=== PATIENT | female | born 1950 | race Caucasian/White ===

== ENCOUNTER 2017-03-16 13:59 | Inpatient (IN) | payer MEDICARE, BC ==
[~2017-03-16] VITALS: Ht 149.9 cm; Wt 45.4 kg
[2017-03-16 14:10] VITALS: BP 141/97
--- NOTE | 2017-03-16 14:10 | NUR ---
ADMISSION NOTES/ PATIENT DIRECT ADMIT AT THIS TIME BROUGHT BY AMBULANCE FROM [facility], 66 Y/OLD ON DX OF GD ON HOLD OF 5150. ACCORDING ON HOLD PT GRAVELY DISABLE, CONFUSED, BROTH [facility] ER HERSELF. 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 DISCHARGE FROM ER, AND RETURNED BACK TO ER REQUESTING ANOTHER TAXI. PT CONFUSED, AND DISORGANIZED. ON FACE TO FACE ASSESSMENT PATIENT A/O X3, WITH CONFUSION, NO RESPIRATORY DISTRESS, SKIN ASSESSMENT DONE, PICTURE TAKEN. PT UNSTEADY GAIT, USING WALKER, HIGH FALL RISK, BED ALARM ON. MRSA OF NARES SWAB TAKEN, PATIENT REFUSED SIGN PAPERWORK. PATIENTS RIGHT HAND BOOK GIVEN, AND EXPLAINED TO. DR DE LEÓN, AND DR MCDONOUGH AWARE OF NEW PATIENT , AND NEW MEDICATION. PATIENT'S FAMILY NOTIFIED.
[2017-03-16] MEDS ORDERED: MAG HYDROX/AL HYDROX/SIMETH 30 ML UDC PO PRN (14:30)
[2017-03-16] MEDS ORDERED: ACETAMINOPHEN 325 MG TABLET PO PRN (14:30)
[2017-03-16] MEDS ORDERED: MAGNESIUM HYDROXIDE 30 ML UDC PO PRN (14:30)
[2017-03-16 16:00] VITALS: BP 123/70
[2017-03-16] MEDS ORDERED: ONDA4TAB8 PO (16:47)
[2017-03-16] MEDS ORDERED: LISI40TA4 PO (16:47)
[2017-03-16] MEDS ORDERED: LOVA40TA2 PO (16:47)
[2017-03-16] MEDS ORDERED: ALEN70TA45 PO (16:47)
[2017-03-16] MEDS ORDERED: HYDR25TA4 PO (16:47)
[2017-03-16] MEDS ORDERED: POTA-58 PO (16:47)
[2017-03-16] MEDS ORDERED: LEVE500T20 PO (16:47)
[2017-03-16] MEDS ORDERED: OLAN5TAB6 SL (16:52)
[2017-03-16] MEDS ORDERED: ACET-73 PO (16:52)
[2017-03-16] MEDS ORDERED: IBUP-51 PO (16:52)
[2017-03-16] MEDS ORDERED: CHOL200026 PO (17:05)
[2017-03-16] MEDS ORDERED: FERR-58 PO (17:05)
[2017-03-16] MEDS ORDERED: DOCU-170 PO (17:05)
[2017-03-16] MEDS ORDERED: LOVA20TA2 PO (17:05)
[2017-03-16] MEDS ORDERED: TRAM50TA2 PO (17:05)
[2017-03-16] MEDS ORDERED: HYDR-552 PO (17:05)
[2017-03-16] MEDS ORDERED: NICO2GUM9 BC (18:26)
[2017-03-16] MEDS ORDERED: LORA1TAB PO (18:26)
[2017-03-16] MEDS ORDERED: NICO1PAT44 TD (18:32)
[2017-03-16] MEDS ORDERED: LORA2TAB PO (18:32)
[2017-03-16] MEDS ORDERED: OLAN10VI IM (18:35)
[2017-03-16 20:25] VITALS: BP 136/91
[2017-03-16] MEDS: LORAZEPAM 0.5 MG TABLET PO PRN (20:47)
[2017-03-16] MEDS: OLANZAPINE 5 MG/TAB.RAPDIS PO SCH (21:53)
[2017-03-16] MEDS: ZOLPIDEM TARTRATE 5 MG TABLET PO PRN (21:58)
[2017-03-17 08:00] VITALS: BP 115/68
[2017-03-17 08:01] LABS: ALBUMIN 3.2 g/dL (3.4-5.0); BILIRUBIN,TOTAL 0.3 mg/dL (0.2-1.0); CALCIUM, SERUM 9.5 mg/dL (8.5-10.1); CREATININE 0.7 mg/dL (0.6-1.3); TOTAL PROTEIN, SERUM 6.6 g/dL (6.4-8.2)
[2017-03-17] MEDS: OLANZAPINE 5 MG/TAB.RAPDIS PO SCH ×2 (08:29→20:37)
[2017-03-17] MEDS ORDERED: NICOTINE PATCH (14MG) 14 MG PATCH.TD24 TD PRN (15:30)
[2017-03-17] MEDS ORDERED: DOCUSATE SODIUM 100 MG CAPSULE PO PRN (15:30)
[2017-03-17] MEDS ORDERED: IBUPROFEN 200 MG TABLET PO PRN (15:30)
[2017-03-17] MEDS: HYDROCHLOROTHIAZIDE 25 MG TABLET PO SCH (15:30)
[2017-03-17] MEDS ORDERED: NICOTINE POLACRILEX 2 MG BC PRN (15:30)
[2017-03-17 16:00] VITALS: BP_SYST 101; BP_SYST 140; BP_DIAS 100; BP_DIAS 51
[2017-03-17] MEDS: CHOLECALCIFEROL 1,000 UNIT TABLET (VIT D3) PO SCH (16:19)
[2017-03-17] MEDS: HYDROCODONE/APAP 5/325MG 1 EACH TABLET PO PRN ×2 (16:19→22:59)
[2017-03-17] MEDS ORDERED: LEVETIRACETAM (250 MG) 250 MG TABLET PO SCH (17:00)
[2017-03-17] MEDS: FERROUS SULFATE (325 MG) 325 MG/TAB TABLET PO SCH (17:01)
[2017-03-17] MEDS ORDERED: LOVASTATIN (NON FORMULARY) 20 MG TABLET PO SCH (18:00)
[2017-03-17 20:00] VITALS: BP 103/69
[2017-03-17] MEDS: LEVETIRACETAM (250 MG) 250 MG TABLET PO SCH (20:37)
[2017-03-17] MEDS: ATORVASTATIN 10 MG TABLET PO SCH (21:50)
[2017-03-17] MEDS: LORAZEPAM 0.5 MG TABLET PO PRN (21:51)
[2017-03-17] MEDS: LISINOPRIL (20MG) 20 MG TABLET PO SCH (21:51)
--- NOTE | 2017-03-17 21:51 | NUR ---
GPS RN NOTES PATIENT APPEARS TO BE RESTLESS AND ANXIOUS. PRN ATIVAN 1 MG GIVEN PO AT 2151 FOR ANXIETY.
--- NOTE | 2017-03-17 22:59 | NUR ---
GPS RN NOTES NORCO 5/325 MG GIVEN PO AT 2259 PER PATIENT REQUEST FOR GENERALIZED PAIN AT 10/10 PAIN SCALE.
[2017-03-17] MEDS: ZOLPIDEM TARTRATE 5 MG TABLET PO PRN (23:56)
--- NOTE | 2017-03-17 23:56 | NUR ---
GPS RN NOTES AMBIEN 5 MG GIVEN PO AT 2356 FOR INABILITY TO SLEEP.
[2017-03-18 08:00] VITALS: BP 132/89
[2017-03-18] MEDS: CHOLECALCIFEROL 1,000 UNIT TABLET (VIT D3) PO SCH (08:20)
[2017-03-18] MEDS: HYDROCHLOROTHIAZIDE 25 MG TABLET PO SCH (08:20)
[2017-03-18] MEDS: FERROUS SULFATE (325 MG) 325 MG/TAB TABLET PO SCH ×3 (08:20→17:27)
[2017-03-18] MEDS: OLANZAPINE 5 MG/TAB.RAPDIS PO SCH ×2 (08:21→21:03)
[2017-03-18] MEDS: LEVETIRACETAM (250 MG) 250 MG TABLET PO SCH ×2 (08:21→21:03)
--- NOTE | 2017-03-18 12:56 | NUR ---
Initial discharge plan: Pt. lives in an [address] [facility] [address] [facility] [address] with her fiance Juan Carlos ([phone]) and will return upon discharge. MONTSE spoke with Juan Carlos who says pt. needs to be stabilized as she has been acting very strange in the past two weeks and needs to be evaluated properly. MONTSE informed of all necessary information and will contact Juan Carlos when pt. is ready to be discharged. Suzanne [phone] from [facility] most likely will help with transportation back home if Juan Carlos is unable to warehouse order picker the patient.
[2017-03-18 16:00] VITALS: BP 127/85
[2017-03-18] MEDS: LORAZEPAM 0.5 MG TABLET PO PRN (19:45)
[2017-03-18 20:00] VITALS: BP 126/95
[2017-03-18] MEDS: ATORVASTATIN 10 MG TABLET PO SCH (21:02)
[2017-03-18] MEDS: LISINOPRIL (20MG) 20 MG TABLET PO SCH (21:02)
[2017-03-18] MEDS: ZOLPIDEM TARTRATE 5 MG TABLET PO PRN (21:02)
[2017-03-19 08:00] VITALS: BP 117/69
[2017-03-19] MEDS: LEVETIRACETAM (250 MG) 250 MG TABLET PO SCH ×2 (08:15→22:10)
[2017-03-19] MEDS: FERROUS SULFATE (325 MG) 325 MG/TAB TABLET PO SCH ×3 (08:15→17:10)
[2017-03-19] MEDS: CHOLECALCIFEROL 1,000 UNIT TABLET (VIT D3) PO SCH (08:15)
[2017-03-19] MEDS: HYDROCHLOROTHIAZIDE 25 MG TABLET PO SCH (08:16)
[2017-03-19] MEDS: OLANZAPINE 5 MG/TAB.RAPDIS PO SCH ×2 (08:16→22:11)
[2017-03-19 16:00] VITALS: BP 130/76
[2017-03-19 20:00] VITALS: BP 127/86
--- NOTE | 2017-03-19 20:00 | NUR ---
GPS/SUPERVISOR BENZENE REFINING; RECEIVED PT WALKING WITH WALKER WITH HER BOYFRIEND TOWARDS THE DAY ROOM . NO MENTIONED OF PAIN. BREATHING NON LABORED. NO AGGRESSION NOTED AT THIS TIME. WILL CONTINUE TO MONITOR.
[2017-03-19] MEDS: ATORVASTATIN 10 MG TABLET PO SCH (22:12)
[2017-03-19] MEDS: LISINOPRIL (20MG) 20 MG TABLET PO SCH (22:13)
[2017-03-19] MEDS: HYDROCODONE/APAP 5/325MG 1 EACH TABLET PO PRN (22:55)
[2017-03-20] MEDS: ZOLPIDEM TARTRATE 5 MG TABLET PO PRN ×2 (00:58→23:03)
--- NOTE | 2017-03-20 06:46 | NUR ---
GPS/QUAHOGGER; SLEPT FOR 5 HOURS LAST NIGHT . PT. IS CONVERSANT. WILL ENDORSE TO THE DAY SHIFT NURSE.
[2017-03-20] MEDS ORDERED: ALENDRONATE 70 MG TABLET PO SCH (07:30)
[2017-03-20 08:00] VITALS: BP 122/78
[2017-03-20] MEDS: LEVETIRACETAM (250 MG) 250 MG TABLET PO SCH ×2 (08:38→21:38)
[2017-03-20] MEDS: CHOLECALCIFEROL 1,000 UNIT TABLET (VIT D3) PO SCH (08:38)
[2017-03-20] MEDS: OLANZAPINE 5 MG/TAB.RAPDIS PO SCH ×2 (08:38→21:39)
[2017-03-20] MEDS: HYDROCHLOROTHIAZIDE 25 MG TABLET PO SCH (08:39)
[2017-03-20] MEDS: FERROUS SULFATE (325 MG) 325 MG/TAB TABLET PO SCH ×3 (08:42→18:34)
[2017-03-20] MEDS: HYDROCODONE/APAP 5/325MG 1 EACH TABLET PO PRN ×2 (13:13→20:50)
--- NOTE | 2017-03-20 13:13 | NUR ---
ADMINISTERED NARCO 5/325 MG PO PRN FOR CHRONIC GENERALIZED PAIN 06/23, V/S TAKE, BP-120/74, P-78, CONTINUED MONITORING, ENCOURAGED TO INCREASE FLUID INTAKE.
[2017-03-20 16:00] VITALS: BP 122/91
[2017-03-20 20:09] VITALS: BP 119/94
[2017-03-20] MEDS: ATORVASTATIN 10 MG TABLET PO SCH (21:38)
[2017-03-20] MEDS: LISINOPRIL (20MG) 20 MG TABLET PO SCH (21:39)
--- NOTE | 2017-03-20 23:03 | NUR ---
GPS RN NOTE, PATIENT HAS A COMPLAINT OF NOT BEING ABLE TO SLEEP AND WOULD LIKE A SLEEPING AID AT THIS TIME. PATIENT VITAL SIGNS ARE STABLE. GAVE AMBIEN 5MG PO HS. WILL REASSESS FOR INSOMNIA AND I WILL CONTINUE TO MONITOR THIS PATIENT.
--- NOTE | 2017-03-21 01:02 | NUR ---
Pt has been quite demanding, argumentative, anxious, paranoid, emotionally labile, & with flat affect at times. She is med compliant w/o any promptings.
[2017-03-21 08:00] VITALS: BP 133/96
[2017-03-21] MEDS: LEVETIRACETAM (250 MG) 250 MG TABLET PO SCH ×2 (08:26→20:28)
[2017-03-21] MEDS: HYDROCHLOROTHIAZIDE 25 MG TABLET PO SCH (08:26)
[2017-03-21] MEDS: CHOLECALCIFEROL 1,000 UNIT TABLET (VIT D3) PO SCH (08:27)
[2017-03-21] MEDS: OLANZAPINE 5 MG/TAB.RAPDIS PO SCH ×2 (08:27→20:28)
[2017-03-21] MEDS: FERROUS SULFATE (325 MG) 325 MG/TAB TABLET PO SCH ×3 (08:30→17:19)
[2017-03-21 10:47] LABS: BASOPHILS # (AUTO) 0.1 /CMM (0.0-0.2); BASOPHILS % (AUTO) 0.5 % (0.0-2.0); EOSINOPHILS # (AUTO) 0.1 /CMM (0.0-0.7); EOSINOPHILS % (AUTO) 0.7 % (0.0-6.0); HEMATOCRIT 44 % (33-45); HEMOGLOBIN 14.5 g/dL (11.5-14.8); LYMPHOCYTES # (AUTO) 1.5 /CMM (0.8-4.8); LYMPHOCYTES % (AUTO) 14.9 % (20.0-44.0); MEAN CORPUSCULAR HEMOGLOBIN 28 PG (26.0-33.0); MEAN CORPUSCULAR HGB CONC 33 g/dl (31.0-36.0); MEAN CORPUSCULAR VOLUME 86 fL (82-100); MONOCYTES # (AUTO) 0.7 /CMM (0.1-1.30); MONOCYTES % (AUTO) 6.8 % (2.0-12.0); NEUTROPHILS # (AUTO) 7.8 /CMM (1.8-8.9); NEUTROPHILS % (AUTO) 77.1 % (43.0-81.0); PLATELET COUNT (AUTO) 382 /CMM (150-450); RDW COEFFICIENT OF VARIATION 13.3 (11.5-15.0); RED BLOOD CELL COUNT(AUTO) 5.14 MIL/uL (4.0-5.2); WHITE BLOOD COUNT (AUTO) 10.1 K/uL (4.3-11.0)
[2017-03-21] MEDS: HYDROCODONE/APAP 5/325MG 1 EACH TABLET PO PRN ×2 (12:33→22:39)
[2017-03-21 16:14] VITALS: BP 135/96
--- NOTE | 2017-03-21 19:10 | NUR ---
GPS/RN NOTE: PATIENT WAS TALKING OVER THE PHONE OUTSIDE. ALERT, AMBULATORY WITH WALKER. NO APPARENT DISTRESS NOTED
[2017-03-21 20:01] VITALS: BP 128/82
[2017-03-21] MEDS: ATORVASTATIN 10 MG TABLET PO SCH (20:28)
[2017-03-21] MEDS: LISINOPRIL (20MG) 20 MG TABLET PO SCH (20:30)
[2017-03-21 22:25] VITALS: BP 91/51
--- NOTE | 2017-03-21 22:39 | NUR ---
GPS/RN NOTE: C/O PAIN LEFT LEG, 6/10 ON PAIN SCALE, NORCO 5/325 MG TAB 1 PO GIVEN.
[2017-03-22] MEDS: ZOLPIDEM TARTRATE 5 MG TABLET PO PRN ×2 (02:27→22:57)
--- NOTE | 2017-03-22 02:27 | NUR ---
GPS/RN NOTE: C/O INSOMNIA, AMBIEN 5 MG TAB 1 PO GIVEN.
[2017-03-22] MEDS: HYDROCODONE/APAP 5/325MG 1 EACH TABLET PO PRN ×2 (04:00→21:08)
--- NOTE | 2017-03-22 04:01 | NUR ---
GPS/RN NOTE: C/O PAIN LEFT LEG, 6/10 ON PAIN SCALE, NORCO TAB 1 PO GIVEN.
[2017-03-22] MEDS: FERROUS SULFATE (325 MG) 325 MG/TAB TABLET PO SCH ×2 (08:06→12:08)
[2017-03-22] MEDS: HYDROCHLOROTHIAZIDE 25 MG TABLET PO SCH (08:07)
[2017-03-22] MEDS: LEVETIRACETAM (250 MG) 250 MG TABLET PO SCH ×2 (08:07→21:04)
[2017-03-22] MEDS: OLANZAPINE 5 MG/TAB.RAPDIS PO SCH ×2 (08:07→21:06)
[2017-03-22] MEDS: CHOLECALCIFEROL 1,000 UNIT TABLET (VIT D3) PO SCH (08:07)
[2017-03-22 08:18] VITALS: BP 120/85
--- NOTE | 2017-03-22 10:00 | NUR ---
RN-CO: Notified Dr Ley that patient applied for "Writ of Habeas Corpus." Dr Ley stated that he will discharge the patient tomm. March 23. criminal justice social worker Meghan made aware.
--- NOTE | 2017-03-22 10:43 | NUR ---
MONTSE spoke with Suzanne [phone] from [facility] to arrange transportation for tomorrow's discharge.
[2017-03-22 11:59] LABS: APPEARANCE,URINE CLEAR (CLEAR); BILIRUBIN,URINE NEGATIVE (NEGATIVE); BLOOD, URINE NEGATIVE Ery/uL (NEGATIVE); COLOR,URINE YELLOW (YELLOW); KETONES,URINE NEGATIVE (NEGATIVE); LEUKOCYTE ESTERASE ,URINE NEGATIVE (NEGATIVE); NITRITE, URINE POSITIVE (NEGATIVE); PH,URINE 7.5 (5.0-8.0); PROTEIN,URINE NEGATIVE (NEGATIVE); UGLUCOSE NEGATIVE (NEGATIVE); UROBILINOGEN,URINE 0.2 EU/dL (0.2)
[2017-03-22 12:10] LABS: CANNABINOID, URINE NEGATIVE (NEGATIVE); PHENCYCLIDINE SCREEN,URINE NEGATIVE (NEGATIVE)
[2017-03-22 12:17] LABS: ADD URINE CULTURE YES; BACTERIA,URINE Few /HPF (None Seen); RBC,URINE 0-2 /HPF (0-2); WBC,URINE 0-3 /HPF (0-3)
[2017-03-22 12:18] LABS: SQUAMOUS EPITHELIAL CELL,UR Rare /HPF (None Seen)
--- NOTE | 2017-03-22 13:33 | NUR ---
Suzanne [phone] from [facility] arranged an after care appointment with Magdaleno Ramirez at the [facility] in [place] at [address] [facility] [address] fax [phone] on April 12 at 12:00PM.
[2017-03-22 16:18] VITALS: BP 126/89
[2017-03-22 20:18] VITALS: BP 137/94
[2017-03-22] MEDS: ATORVASTATIN 10 MG TABLET PO SCH (21:05)
[2017-03-22] MEDS: LISINOPRIL (20MG) 20 MG TABLET PO SCH (21:07)
[2017-03-23] MEDS: LORAZEPAM 0.5 MG TABLET PO PRN (02:00)
[2017-03-23 08:21] VITALS: BP 132/98
[2017-03-23 08:22] VITALS: BP 132/98
[2017-03-23] MEDS: HYDROCHLOROTHIAZIDE 25 MG TABLET PO SCH (08:22)
[2017-03-23] MEDS: LEVETIRACETAM (250 MG) 250 MG TABLET PO SCH (08:23)
[2017-03-23] MEDS: OLANZAPINE 5 MG/TAB.RAPDIS PO SCH (08:23)
[2017-03-23] MEDS: FERROUS SULFATE (325 MG) 325 MG/TAB TABLET PO SCH (08:28)
[2017-03-23] MEDS: CHOLECALCIFEROL 1,000 UNIT TABLET (VIT D3) PO SCH (08:29)
--- NOTE | 2017-03-23 11:40 | NUR ---
DISCHARGE NOTES/ PATIENT DISCHARGE AT THIS TIME GOING BACK HOME [place]. PATIENT A/O X3, MED COMPLAINT, V/S STABLE, MEDICALLY STABLE, NO C/O PAIN. PATIENT DENIED SI/HI/AVH AT THIS TIME. MED RECONCILIATION, AND DISCHARGE ORDER REVIEWED AND EXPLAINED TO. PATIENT VERBALIZED UNDERSTANDING. 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
--- NOTE | 2017-03-24 14:52 | NUR ---
Discharge note: discharged back home [address] [facility] [address] with her fianc Juan Carlos ([phone]) who was notified and agreed with the discharge plan. She was picked up by [employer] which was set up by [facility]. Pt. was calm and cooperative and agreed with the discharge plan. Denied suicidal/homicidal ideations. Pt. was going to follow up with Dr. Magdaleno Rachel at the [facility] in [place] at [address] [facility] [address] fax [phone] on April 12 at 12:00PM. Discharge paperwork has been signed and instructions were provided to the patient.
== END 2017-03-23 11:30 | disposition home or self-care (01) | DRG 885 ==
LOC: GPS 13:59
PROVIDERS: ADMIT Psychiatry & Neurology Psychiatry; ATTEND Internal Medicine
DX: F29 Unspecified psychosis not due to a substance or known physiological condition (principal); E11.9 Type 2 diabetes mellitus without complications; E55.9 Vitamin D deficiency, unspecified; G40.909 Epilepsy, unspecified, not intractable, without status epilepticus; I10 Essential (primary) hypertension; G89.29 Other chronic pain; M54.30 Sciatica, unspecified side; M06.9 Rheumatoid arthritis, unspecified
CPT/HCPCS: 36415; 70450-TC; 71020-TC; 80053-TC; 80061-TC; 80305; 81000-TC; 82542; 84443-TC; 85025-TC; 87081-TC; 87086-TC; 97001-TC

== ENCOUNTER 2017-07-23 09:50 | Inpatient (IN) | payer MEDICARE, BC ==
[~2017-07-23] VITALS: Ht 124.5 cm; Wt 59.4 kg
[~2017-07-23 09:50] MED LIST: ACET-73 PO; ALEN70TA45 PO; CHOL200026 PO; DOCU-170 PO; FERR-58 PO; HYDR-552 PO; HYDR25TA4 PO; IBUP-51 PO; LEVE500T20 PO; LISI40TA4 PO; LORA1TAB PO; LORA2TAB PO; LOVA20TA2 PO; NICO1PAT44 TD; NICO2GUM9 BC; OLAN10VI IM; OLAN5TAB6 SL; ONDA4TAB8 PO; POTA-58 PO; TRAM50TA2 PO
[2017-07-23 10:00] VITALS: BP 120/98
[2017-07-23] MEDS ORDERED: MAGNESIUM HYDROXIDE 30 ML UDC PO PRN (10:30)
[2017-07-23] MEDS ORDERED: ACETAMINOPHEN 325 MG TABLET PO PRN (10:30)
[2017-07-23] MEDS ORDERED: LORAZEPAM 0.5 MG TABLET PO PRN (10:30)
[2017-07-23] MEDS ORDERED: MAG HYDROX/AL HYDROX/SIMETH 30 ML UDC PO PRN (10:30)
[2017-07-23] MEDS ORDERED: ZOLPIDEM TARTRATE 5 MG TABLET PO PRN (10:30)
[2017-07-23 11:00] VITALS: BP 120/98
--- NOTE | 2017-07-23 11:46 | NUR ---
CALLED DR. CORRAL FOR THE CONSULT AND LEFT A MESSAGE.
[2017-07-23] MEDS ORDERED: TRAMADOL HCL 50 MG TABLET PO PRN (12:00)
[2017-07-23] MEDS ORDERED: DOCUSATE SODIUM 100 MG CAPSULE PO PRN (12:00)
[2017-07-23] MEDS: CHOLECALCIFEROL 1,000 UNIT TABLET (VIT D3) PO SCH (12:51)
[2017-07-23] MEDS: OLANZAPINE 5 MG/TAB.RAPDIS PO SCH ×2 (12:51→17:11)
[2017-07-23] MEDS: ESCITALOPRAM OXALATE (10 MG) 10 MG TABLET PO SCH (12:51)
--- NOTE | 2017-07-23 13:27 | NUR ---
GPS RN NOTES MRSA OF NARES SWAB TAKEN, CALLED LAB CONSULTANT TEACHER.
--- NOTE | 2017-07-23 14:00 | NUR ---
GPS RN ADMITTING NOTES: ADMITTED PATIENT FROM [facility] AT 1000. PATIENT IS ON HOLD FOR DANGER TO SELF. PER HOLD, PATIENT WANDERED OFF FROM HOME, EXHIBIT STRANGE BEHAVIOR, AND STATING SUICIDAL BEHAVIOR AFTER POSSIBLY TAKING AMBIEN. UPON FACE TO FACE ASSESSMENT PATIENT IS A/O X3, COOPERATIVE, NO AGITATION, DENIES SI/HI/AVH. PATIENT STATES THAT SHE WAS DEPRESSED WHEN SHE MADE THOSE STATEMENTS. PATIENT IS AMBULATORY, CONTINENT, ABLE TO PROVIDE SELF-CARE. DR. DE LEÓN GAVE ADMITTING ORDERS , DR. SANFORD RECONCILED THE MEDICATIONS. BELONGINGS CHECKED FOR CONTRABAND. VSS. CONTINUE TO MONITOR THE PATIENT.
[2017-07-23] MEDS: HYDROCODONE/APAP 5/325MG 1 EACH TABLET PO PRN (15:32)
[2017-07-23 16:00] VITALS: BP 112/74
[2017-07-23 20:00] VITALS: BP 139/96
[2017-07-23] MEDS: LEVETIRACETAM (250 MG) 250 MG TABLET PO SCH (21:33)
[2017-07-23] MEDS: LISINOPRIL (20MG) 20 MG TABLET PO SCH (21:33)
[2017-07-24] MEDS: HYDROCODONE/APAP 5/325MG 1 EACH TABLET PO PRN ×3 (05:51→21:10)
[2017-07-24 07:50] LABS: CHOLESTEROL 265 mg/dL (<200); HDL CHOLESTEROL 58 mg/dL (40-60); LDL 171 mg/dL (0-99); TRIGLYCERIDES 304 mg/dL (30-150)
[2017-07-24 07:51] LABS: ALBUMIN 3.4 g/dL (3.4-5.0); BILIRUBIN,TOTAL 0.3 mg/dL (0.2-1.0); CALCIUM, SERUM 9.4 mg/dL (8.5-10.1); CREATININE 0.5 mg/dL (0.6-1.3); POTASSIUM 3.9 mmol/L (3.5-5.1); TOTAL PROTEIN, SERUM 6.9 g/dL (6.4-8.2)
[2017-07-24 08:39] VITALS: BP 110/68
[2017-07-24] MEDS: LEVETIRACETAM (250 MG) 250 MG TABLET PO SCH ×2 (08:57→21:56)
[2017-07-24] MEDS: ESCITALOPRAM OXALATE (10 MG) 10 MG TABLET PO SCH (08:58)
[2017-07-24] MEDS: HYDROCHLOROTHIAZIDE 25 MG TABLET PO SCH (08:59)
[2017-07-24] MEDS: CHOLECALCIFEROL 1,000 UNIT TABLET (VIT D3) PO SCH (08:59)
[2017-07-24] MEDS: OLANZAPINE 5 MG/TAB.RAPDIS PO SCH ×2 (09:00→16:25)
[2017-07-24] MEDS: ATORVASTATIN 10 MG TABLET PO SCH (09:00)
[2017-07-24] MEDS ORDERED: ALENDRONATE 70 MG TABLET PO SCH (12:00)
--- NOTE | 2017-07-24 13:10 | NUR ---
GPS RN NOTES/ ADMINISTERED NARCO 5/325 MG PO PRN FOR GENERALIZED PAIN 06/23 PER PATIENT REQUEST, V/S TAKEN BP -115/70,P-69, ENCOURAGED TO INCREASE FLUID INTAKE, CONTINUED MONITORING.
[2017-07-24 16:07] VITALS: BP 110/67
[2017-07-24 20:00] VITALS: BP 135/89
[2017-07-24] MEDS: LISINOPRIL (20MG) 20 MG TABLET PO SCH (21:56)
--- NOTE | 2017-07-25 00:16 | NUR ---
Pt has been impassive, anhedonic, depressed, & emotionally labile but compliant with care w/o any promptings.
[2017-07-25] MEDS: HYDROCODONE/APAP 5/325MG 1 EACH TABLET PO PRN (04:33)
[2017-07-25] MEDS ORDERED: ALENDRONATE 70 MG TABLET PO SCH (07:00)
[2017-07-25 08:00] VITALS: BP 124/84
[2017-07-25 08:29] VITALS: BP 124/84
[2017-07-25] MEDS: ATORVASTATIN 10 MG TABLET PO SCH (08:47)
[2017-07-25] MEDS: OLANZAPINE 5 MG/TAB.RAPDIS PO SCH (08:47)
[2017-07-25] MEDS: ESCITALOPRAM OXALATE (10 MG) 10 MG TABLET PO SCH (08:47)
[2017-07-25] MEDS: CHOLECALCIFEROL 1,000 UNIT TABLET (VIT D3) PO SCH (08:47)
[2017-07-25] MEDS: LEVETIRACETAM (250 MG) 250 MG TABLET PO SCH (08:47)
[2017-07-25 08:48] VITALS: BP 124/84
[2017-07-25] MEDS: HYDROCHLOROTHIAZIDE 25 MG TABLET PO SCH (08:48)
--- NOTE | 2017-07-25 13:05 | NUR ---
GPS DISCHARGE NOTES PATIENT D/C AMA AT THIS TIME GOING HOME. PATIENT A/O X3, MED COMPLIANT, V/S STABLE, MEDICALLY STABLE, NO C/O PAIN. PATIENT DENIED SI/HI/AVH AT THIS TIME. BELONGING RETURNED BACK TO THE PATIENT. 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
== END 2017-07-25 13:05 | disposition left against medical advice (07) | DRG 885 ==
LOC: GPS 09:50
PROVIDERS: ADMIT Psychiatry & Neurology Psychiatry; ATTEND Internal Medicine
DX: F33.3 Major depressive disorder, recurrent, severe with psychotic symptoms (principal); F29 Unspecified psychosis not due to a substance or known physiological condition; I10 Essential (primary) hypertension; E78.5 Hyperlipidemia, unspecified; F41.9 Anxiety disorder, unspecified; G40.909 Epilepsy, unspecified, not intractable, without status epilepticus; M19.90 Unspecified osteoarthritis, unspecified site; M81.0 Age-related osteoporosis without current pathological fracture; Z73.6 Limitation of activities due to disability; F31.9 Bipolar disorder, unspecified
CPT/HCPCS: 36415; 80053-TC; 80061-TC; 87081-TC; Z7610